=== PATIENT | male | born 1980 | race Caucasian/White ===

== ENCOUNTER 2022-03-14 19:20 | Emergency (ER) | payer MEDICAID ==
[~2022-03-14] VITALS: Ht 165.1 cm; Wt 102.0 kg
[2022-03-14 19:23] VITALS: BP 209/131
[2022-03-14] MEDS ORDERED: ASPIRIN 81MG TABLET PO ONE (19:30)
[2022-03-14] MEDS ORDERED: AMLODIPINE 10MG TABLET PO ONE (19:30)
[2022-03-14 20:10] LABS: BASOPHILS % 0.5 % (0.0-2.0); EOSINOPHILS % 0.9 % (0.0-5.0); HEMATOCRIT. 42.4 % (42.0-52.0); HEMOGLOBIN. 13.9 g/dL (14.0-18.0); LYMPHOCYTES % 21.4 % (20.0-50.0); MEAN CORPUSCULAR HEMOGLOBIN 28.9 pg (28.0-32.0); MEAN CORPUSCULAR VOLUME 88.4 fL (80.0-94.0); MEAN PLATELET VOLUME 8.2 fl (7.4-10.4); MONOCYTES % 7.3 % (2.0-8.0); NEUTROPHILS % 69.9 % (40.0-76.0); PLATELET 297 x1000/uL (130-400); RED BLOOD CELL COUNT 4.79 mill/uL (4.7-6.1); RED CELL DISTRIBUTION WIDTH 14.8 % (11.6-14.6)
[2022-03-14 20:14] LABS: CHLORIDE 106 mEq/L (98-107)
[2022-03-14 20:23] LABS: BETA HYDROXYBUTYRATE 0.1 mMol/L (0.0-0.3); ETHANOL BLOOD < 10 mg/dL
== END 2022-03-15 04:38 | disposition left against medical advice (07) ==
LOC: ER 19:20
DX: E11.65 Type 2 diabetes mellitus with hyperglycemia (principal); R79.1 Abnormal coagulation profile; I49.8 Other specified cardiac arrhythmias; I10 Essential (primary) hypertension; M19.90 Unspecified osteoarthritis, unspecified site
CPT/HCPCS: 36415; 71045; 80053; 80320; 82010; 82962; 83036; 83880; 84484; 85025; 85379; 93005; 93970; 99285; G0480